=== PATIENT | male | born 1950 | race Hispanic/Latino ===

== ENCOUNTER 2016-10-23 11:40 | Day surgery (SDC) | payer MEDICARE, MEDICAID ==
[~2016-10-23] VITALS: Ht 149.9 cm; Wt 69.0 kg
[~2016-10-23 11:40] MED LIST: 0.9% Sodium Chloride 1,000 ML IV SCH; ACET-1453 PO; Lidocaine PF 2% 5 mL Inj MUC_MEMBRM PRN; Lidocaine PF 2% 5 mL Inj MUC_MEMBRM SCH; Lidocaine Topical 2% 30 mL Jelly MUC_MEMBRM PRN; fentaNYL-PF 50 mCg/mL 2 mL Inj IVPUSH PRN
[2016-10-23 12:00] VITALS: BP 132/78; PULSE 69; RESP 18; O2SAT 97
[2016-10-23] MEDS ORDERED: METF-778 PO (12:02)
[2016-10-23] MEDS ORDERED: Lidocaine PF 2% 10 mL Inj ONE (12:13)
[2016-10-23 13:50] VITALS: BP 122/69; PULSE 61; RESP 15; O2SAT 95
[2016-10-23 14:15] VITALS: BP 119/67; PULSE 62; RESP 14; O2SAT 94
[2016-10-23 14:30] VITALS: BP 115/67; PULSE 67; RESP 16; O2SAT 97
--- NOTE | 2016-10-23 22:44 | ENDO ---
[address] [address] ENDOSCOPY PROCEDURE PATIENT: MARCUS SAM : 1950 MR#: [id number] ADMIT: 10/23/2016 JOB ID: [id number] DATE: 10/23/2016 PROCEDURE: Bronchoscopy. PERFORMED BY: Francisca Meyers MD INDICATION: Bilateral lung nodules suspicious for infection. 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 Description: The patient was asked to gargle lidocaine and additional lidocaine was administered via atomizer to the oropharynx. IV sedation was then administered and scope was passed through the mouth. Epiglottis and vocal cords were visualized and normal in appearance. The scope was then passed into the trachea and a complete bilateral airway inspection was performed. There were no abnormalities in the airway mucosa. No masses, abnormal secretions, etc. I proceeded to do a lavage in the right upper lobe posterior segment. This was a difficult location to get the scope into and we administered approximately 150 cc of saline to get about 25 cc return. We then did a lavage in the left upper lobe anterior segment. Once again about 100 cc of saline was administered with about 20 cc of fluid return. Appearance of the fluid was normal, clear/grayish. FINDINGS: Completely normal airway exam. SAMPLES: Bronchoalveolar lavage from right upper lobe posterior segment and left upper lobe anterior segment were both obtained and pooled. TESTING: Bacterial, fungal, acid fast bacilli, viral cultures were requested. Also, cytology was requested on the BAL. COMPLICATIONS: None. The patient tolerated the procedure well. FOLLOWUP: The patient has followup with Infectious Diseases in about 10 days' time. Since our suspicion is for atypical infection, I suspect it will take that long for the results from the bronchoscopy. I explained to the patient that I do not expect any results in the next few days and it may take 1-3 weeks for final results. He has close followup with Dr. Samuels in Infectious Disease. TAYLER
--- NOTE | 2016-10-26 15:24 | PATH ---
SURGICAL PATHOLOGY Attending Physician:Francisca Meyers MD CASE STATUS: Signed Out PATIENT NAME: MARCUS SHAH PID: [id number] : 1950 DATE COLLECTED:10/23/2016 00:00 SPECIMEN: Bilateral Bronchial Lavage CLINICAL HISTORY: Bilateral Bronchial Lavage No ICD-10 code given FINAL DIAGNOSIS: BILATERAL BRONCHIAL LAVAGE: NEGATIVE FOR MALIGNANT CELLS. ALVEOLAR MACROPHAGES, HEMOSIDERIN-LADEN MACROPHAGES, AND INFLAMMATORY CELLS ARE PRESENT. ICD10 CODE R91.8 GROSS DESCRIPTION: Received fresh on 10/25/2016 is approximately 20 cc of clear colorless fluid. Prepared are one cell block and one ThinPrep slide. vo/hk ICD-9 CODES: CPT CODES: 1: 83320, 44025 Electronically Signed Out Mohit Nicole MD [facility] Pathology [facility] [address], [place] [address] Technical component performed at [facility], [facility] [address], [place], [address]
== END 2016-10-23 23:59 | disposition home or self-care (01) ==
LOC: END 11:40
PROVIDERS: ATTEND Internal Medicine Critical Care Medicine
DX: R91.8 Other nonspecific abnormal finding of lung field (principal); E11.9 Type 2 diabetes mellitus without complications; Z87.891 Personal history of nicotine dependence
CPT/HCPCS: 31624; 87070; 87101; 87205; 87206; 87254; 87278; 87556; 87633; 99153; G0500; J2250; J7030

== ENCOUNTER 2017-01-08 17:45 | Emergency (ER) | payer MEDICARE, MEDICAID ==
[~2017-01-08] VITALS: Ht 149.9 cm; Wt 69.1 kg
[~2017-01-08 17:45] MED LIST changes: -0.9% Sodium Chloride 1,000 ML IV SCH; -Lidocaine PF 2% 5 mL Inj MUC_MEMBRM PRN; -Lidocaine PF 2% 5 mL Inj MUC_MEMBRM SCH; -Lidocaine Topical 2% 30 mL Jelly MUC_MEMBRM PRN; +METF-778 PO; -fentaNYL-PF 50 mCg/mL 2 mL Inj IVPUSH PRN
[2017-01-08 17:50] VITALS: BP 150/83; PULSE 71; RESP 20; O2SAT 98
--- NOTE | 2017-01-08 19:38 | ED.REPORT ---
HPI-Allergic Reaction Date of Service Jan 08, 2017 ED Provider: Juan Go MD History of Present Illness: This is a 66-year-old male active TB who started medications about 5 days ago was sent in by the health department with initial report "respiratory complaints". The patient's a very poor historian and had extreme difficulty obtaining history, but it turns out the health department was checking on him today after he took his medicines, and he reported having some respiratory complaints, and over the phone they were having a difficult time determining what was going on, and became concerned he might be having an allergic reaction and asked him to come to the emergency department. He described having some brief burning discomfort in his chest, but is asymptomatic now and has no respiratory complaints. He apparently describes some itching to the health Department, but denies any itching here. He has no rash or urticaria. The patient does have a 30+ pound weight loss has been unintentional in recent months, reports his appetite has been poor particularly over the past few days he really has not eaten, we did go ahead and take his routine insulin. Nursing Notes Stated Complaint: POSITIVE TB Chief Complaint: Respiratory Complaints Nursing Notes Reviewed: Yes (Gidsy not reconciled) Allergies: Coded Allergies: No Known Drug Allergies (Verified Allergy, Unknown, 10/23/16) Uncoded Allergies: LACTOSE INTOLERANT (Allergy, Severe, DIARRHEA, 02/15/12) Scheduled Metformin HCl (Metformin HCl ER) 1,000 Mg [id number] 1,000 MG PO BID Scheduled PRN Acetaminophen-Expunged Drug, Do Not Renew! (Tylenol-Expunged Drug, Do Not Renew! ) 325 Mg Tab 325 MG PO Q4 PRN PRN Take as needed for pain relief. General Time Seen by MD: 18:15 Chief Complaint Allergic reaction Hx Obtained From: Patient Arrived By: Walk-in Onset Occurred: 5 days ago Symptom Duration: Since onset Severity: Current: No pain currently Severity: Maximum: No pain Recent Healthcare: Recent doctor visit Similar Sx Previous: No Past Medical History Past Medical History Notes: PCP Dr. Juanis Quigley disease Dr. Samuels Past Medical History Active TB, under treatment with 4 drug regimen starting 01/04/[address] Samuels Qsu-tqrwnto-jrmnqxqxe diabetes, on metformin plus supplemental insulin Anxiety Reports: GERD, Hypertension Reports: Depression Past Surgical History Reports: Cholecystectomy Smoking History Never Smoker Social History Alcohol Use: Denies alcohol use Drug Use: Denies drug use Ambulatory Status Independent Review of Systems + Decrease appetite Skin: Denies Rash Allergy / Immune: Denies: Hives Complete sys rev & neg: except as marked. Cardiovascular: Reports: Chest pain (discomfort, resolved) Endocrine: Reports: Weight loss (30 lbs) Physical Exam Initial Vital Signs Vital Signs (First) Date Time Temp Pulse Resp B/P Pulse Ox O2 Delivery O2 Flow Rate FiO2 01/08/17 17:50 36.4 71 20 150/83 98 Room Air Initial VS: Reviewed, Vital signs normal Head / Eyes: Atraumatic ENT: Mucous membranes moist Abdomen / GI: Soft, Non-tender Back: No CVA tenderness General/Constitutional: Awake, Alert, No acute distress Appearance / Presentation: Positive: Cachectic The patient is simply sitting comfortably in a chair no visible discomfort or distress. He is mildly cachectic Respiratory / Chest: Atraumatic, Breath sounds NL, Breath sounds = bilat, No respiratory distress Cardiovascular: Heart rate NL, Regular rhythm, Heart sounds NL, No murmurs, Cap refill not delayed Skin: Atraumatic, Color NL, No rash (`) Urticaria or signs of allergic reaction identified, also no lymphadenopathy appreciated Abdomen: Atraumatic, Soft, Non-tender Neurologic: Oriented X3, Speech NL, No motor deficits Lymphatic: No gross adenopathy Psychiatric: Affect NL Interpretation & Diagnostics Lab Results Interpretation Result Diagram: 01/08/17193401/08/171934 Test 01/08/17 19:35 White Blood Count 5.8th/mm3 (3.8-10.1) Red Blood Count 5.30mil/mm3 (4.40-5.80) Hemoglobin 15.2g/dL (13.8-17.2) Hematocrit 43.3% (41.0-50.0) Mean Corpuscular Volume 81.7fL (81-100) Mean Corpuscular Hemoglobin 28.7pg (27.0-35.0) Mean Corpuscular Hemoglobin Concent 35.1% (32.0-37.0) Red Cell Distribution Width 12.7% (12.3-15.4) Platelet Count 256bil/L (150-400) Neutrophils (%) (Auto) 58.5% (40-74) Lymphocytes (%) (Auto) 26.0% (14-46) Monocytes (%) (Auto) 11.4% (4-12) Eosinophils (%) (Auto) 3.6% (0-5) Basophils (%) (Auto) 0.2% (0-3) Sodium Level 135mEq/L (134-144) Potassium Level 4.1mEq/L (3.5-5.2) Chloride Level 96mEq/L (97-108) Carbon Dioxide Level 24mmol/L (18-29) Blood Urea Nitrogen 9mg/dL (8-27) Creatinine 0.41mg/dL (0.76-1.27) Estimat Glomerular Filtration Rate 222mL/min (>59) Glucose Level 142mg/dL (60-99) Calcium Level 9.9mg/dL (8.5-10.1) Total Bilirubin 0.8mg/dL (0.0-1.2) Aspartate Amino Transf (AST/SGOT) 38U/L (0-50) Alanine Aminotransferase (ALT/SGPT) 36U/L (0-44) Alkaline Phosphatase 323U/L (25-160) Total Protein 8.0g/dL (6.4-8.4) Albumin 4.2g/dL (3.4-5.0) Hold Foster Top Tube Received (Received) Lab Results Interpretation: CBC normal CMP normal except for elevated alkaline phosphatase consistent with TB X-Ray Chest Interpretation Chest Xray Interpretation: IMPRESSION: 1. New right upper lobe airspace opacities consistent with consolidation. Given patient's history, the findings are highly suspicious for reactivation tuberculosis. Findings discussed with Dr. Go on 01/08/17 at 8:05 PM. Dictated by: Mohit Dumont M.D. on 01/08/2017 at 20:02 View: Portable, 1 view Interpretation / Wet Read by: Interpret - Radiologist Re-Eval/Medical Decision Med Decision/Clinical Course This is a 66-year-old male recently started treatment for active TB. He should just started a multidrug coarse and is followed by both Dr. Samuels of infectious disease and the Department of Health. He is an extremely poor historian apparently was referred to his private , but the patient did not know why. I cannot initially get him to endorse a specific complaints. He does have a roughly 30 pound weight loss in recent months, reports a very poor appetite with anorexia-he thinks that may be due to the medications he just started. However he clearly describes anorexia and weight loss prior to initiating the medication. The patient is mildly cachectic, but otherwise well and energetic. He is a diabetic and has poor understanding of diabetic management. He is not currently coughing, denies fevers or chills or hemoptysis. On exam he otherwise appears well. Labs were obtained and an x-ray which is consistent with active TB. Meanwhile given the difficulties getting his history, I contacted the [facility] and learned that the actual reason the patient was sent here is that when they touch base them after he took his oral medicines today he talks about having some shortness of breath and some itching and they were concerned he might be having an allergic reaction to his medication, but they too had the difficulties is such an extremely poor historian and the consort things out of the phone, so they recommended he come to the ED for further evaluation. However here in the department again the patient has no complaints, he has no angioedema, no tachypnea or dyspnea, and no clinical findings of allergic reaction. Presentation with both the [facility], and the contact Dr. Samuels, and at this point given the absence of heart findings of allergic reaction was strongly wanting to continue his TB regimen. The plan is discharge with continuation of the regimen, additionally the [facility] and Mis[facility] are working for improved diabetic education. I have recommended boost nutritional shakes in an attempt to help encourage his nutritional status. Routine precautions reviewed. Patient's discharged in company of family in stable condition. Patient was maintained in isolation precautions and with standard TB precautions during his ED course Source of Hx: Old records Re-Evaluation/Progress : Time of Eval: 21:40 Re-Evaluation/Progress Note: Pt rechecked. Informed pt of plan for discharge. Pt understands and agrees with plan for discharge. F/U instructions and RTER warnings given. All questions addressed. Consultation #1: Referral / Consult Name: Major Peñaloza MD Call Returned at: 19:27 Qc Scientist: Agrees with eval, Agrees with plan Note: Discussed pt's case to determine why pt was referred to the ED. Consultation #2: Call Returned at: 19:41 Qc Scientist: Agrees with eval, Agrees with plan Note: Consulted with Health Department. Discussed pt's case. They report that they are also trying to enroll the pt in a diabetes education program because they also noticed that he has no idea what he is doing. Consultation #3: Call Returned at: 20:05 Note: Consult with Dr. Dumont, Radiologist. Discussed chest x-ray findings. Consultation #4: Referral / Consult Name: Deon Samuels MD Call Returned at: 21:03 Qc Scientist: Agrees with eval, Agrees with plan Note: Consulted with Infectious disease specialist. He agrees with plan to discharge pt. Counseled Regarding: Diagnosis, Need for follow-up, When/why to return to ED Discharge & Departure Primary Impression: Active tuberculosis Disposition: Home Discharge Condition All VS Reviewed: Yes Condition: Stable Additional Instructions: 1. He was sent to the emergency department by the health department with the concern that there was a possibility you might be having an allergic reaction and a box for your tuberculosis. 2. Hoewever, we did not find signs of allergic reaction in the emergency department. 3. This means we strongly recommend that you continue your current course of antibiotics, we did not recommend making a change at this time. These antibiotics should help get rid of the tuberculosis bacteria, which are likely causing her loss of appetite and weight loss and cough. 4. Continue to work with the public health department, and with Dr. Samuels. 5. Please also note that the health department and [facility] are working to arrange some additional diabetes education to help with your blood sugar management. 6. I recommend getting some nutritional shakes (such as the brand name "Boost" ) to help make sure you are getting adequate nutrition. 7. Return again if you have new or worsening symptoms. Referrals: Sonia Olivarez MD (PCP) Ben Attestation Portions of this note were transcribed by Alma Delia Castillo. I, Dr. Go personally performed the history, physical exam and medical decision-making; I reviewed and confirmed the accuracy of the information in the transcribed note. Signed by: Ben Moreau, 01/08/17. copies to: Sonia Olivarez MD, Matthew F MD Jan 08, 2017 19:38 Alma Delia Martínez Jan 08, 2017 19:42
[2017-01-08] MEDS ORDERED: Dextrose 5% 0.9% NaCl 1,000 ML IV ONE (19:50)
[2017-01-08 19:54] LABS: BASOPHILS % (AUTO) 0.2 % (0-3); EOSINOPHILS % (AUTO) 3.6 % (0-5); MONOCYTES % (AUTO) 11.4 % (4-12); Mean Corpuscular Hemoglobin 28.7 pg (27.0-35.0); Mean Corpuscular Volume 81.7 fL (81-100); NEUTROPHILS % (AUTO) 58.5 % (40-74); Platelet Count 256 bil/L (150-400)
--- NOTE | 2017-01-08 20:07 | DRSVH ---
PROCEDURE: X-RAY CHEST ONE VIEW, PORTABLE ([id number]) INDICATIONS: TB positive sputum TECHNIQUE: One view of the chest was acquired. COMPARISON: [facility], , CHEST 1VW (PORTABLE), 01/31/2012, 21:19. FINDINGS: Surgical changes and devices: None. Lungs and pleura: No pleural effusions or pneumothorax. There are new confluent airspace opacities in the right upper lobe. Prominent epicardial fat in the left lung base appears unchanged. Mediastinum: Mediastinal contours appear unchanged. Heart size is normal. Bones and chest wall: No suspicious bony lesions. Overlying soft tissues appear unremarkable. IMPRESSION: 1. New right upper lobe airspace opacities consistent with consolidation. Given patient's history, the findings are highly suspicious for reactivation tuberculosis. Findings discussed with Dr. Go on 01/08/17 at 8:05 PM. Dictated by: Mohit Dumont M.D. on 01/08/2017 at 20:02 Approved by: Mohit Dumont M.D. on 01/08/2017 at 20:05
[2017-01-08 22:10] VITALS: BP 148/82; PULSE 70; RESP 18; O2SAT 97
== END 2017-01-08 22:11 | disposition home or self-care (01) ==
LOC: SED 17:45
DX: A15.9 Respiratory tuberculosis unspecified (principal); I10 Essential (primary) hypertension; K21.9 Gastro-esophageal reflux disease without esophagitis; E11.9 Type 2 diabetes mellitus without complications; Z79.84 Long term (current) use of oral hypoglycemic drugs
CPT/HCPCS: 36415; 71010; 80053; 82948; 85025; 96360; 99284; J7042